=== PATIENT | female | born 1960 | race African-American/Black ===

== ENCOUNTER 2021-11-27 20:28 | Emergency (ER) | payer BC, SELFPAY ==
[2021-11-27 20:34] VITALS: BP 172/83; PULSE 83; RESP 16; TEMP 36.6; O2SAT 98
[2021-11-28 00:10] VITALS: PULSE 69; RESP 10; O2SAT 99
[2021-11-28 00:11] VITALS: BP 159/95; PULSE 67; RESP 14; O2SAT 100
--- NOTE | 2021-11-28 00:13 | PC.NURSE ---
Pt reports she is out of medication and has upcoming appointment to establish care with a new PCP. Reports has been monitoring BP at home and it has been elevated. Pt reports she took her daughter's BP med [employer] because she takes the same BP med. Pt also has c/o left side abd pain off and on for 2 weeks
[2021-11-28 00:16] VITALS: PULSE 75; O2SAT 98
[2021-11-28 00:30] VITALS: PULSE 64; RESP 16; O2SAT 100
[2021-11-28 00:32] VITALS: BP 152/96; PULSE 64; RESP 16; O2SAT 100
--- NOTE | 2021-11-28 00:55 | ED.GENADULT ---
HPI - General Adult General Chief complaint: Recheck/Abnormal Lab/Rx Stated complaint: hypertension Time Seen by Provider: 11/28/21 00:14 History of Present Illness HPI narrative: This is a 61-year-old female presenting to ED after an elevated blood pressure reading at home. Patient just moved back to town is working on establishing primary care. She ran out of her amlodipine and hydrochlorothiazide about 5 days ago. Her blood pressure at home was 150/100. Patient is concerned because she had some blurry vision which she thinks is due to her BP. Patient was recently he got a new set of glasses. She has not been wearing them. Had a prolapse is on her vision is back to normal. Patient has appointment with her new primary care physician on December 21. Related Data Allergies Allergy/AdvReac Type Severity Reaction Status Date / Time No Known Allergies Allergy Unverified 01/25/16 19:19 Review of Systems Review of Systems: CONSTITUTIONAL: Denies night sweats. EYES: No eye pain ENT: Denies rhinorrhea CARDIOVASCULAR: Denies palpitations RESPIRATORY: Denies hemoptysis GASTROINTESTINAL: Denies hematemesis GENITOURINARY: Denies hematuria. SKIN: Denies rash MUSCULOSKELETAL: Denies myalgia. NEUROLOGIC: Denies weakness. PSYCHIATRIC: Denies delusions PMFSH Past Medical History Medical History Hypertension Surgical History Surgical History H/O: hysterectomy History of cholecystectomy Social History Social History Social History: Patient's alcohol occasionally, history of tobacco use, denies drug use. Exam Narrative: APPEARANCE: No apparent distress. Head atraumatic. EYES: PERRLA/EOMI, NOSE: Normal no drainage NECK: Supple, Trachea midline RESPIRATORY: CTAB, No increased work of breathing. CARDIOVASCULAR: S1S2 appreciated ABDOMINAL: Soft, nontender, nondistended, MUSCULOSKELETAl: No obvious deformities NEURO: Alert. Cranial nerves 2-12 grossly intact. Sensation light touch, motor function cerebellar function intact for 4 extremities. Gait exam was normal. SKIN:: Warm, dry. Normal color PSYCHIATRIC: Normal affect Course Vital Signs Vital signs: Vital Signs Temperature 97.9 F 11/27/21 20:34 Pulse Rate 83 11/27/21 20:34 Respiratory Rate 16 11/27/21 20:34 Blood Pressure 172/83 H 11/27/21 20:34 Pulse Oximetry 98 11/27/21 20:34 Oxygen Delivery Room Air 11/27/21 20:34 Temperature 97.9 F 11/27/21 20:34 Pulse Rate 67 11/28/21 00:11 Respiratory Rate 14 11/28/21 00:11 Blood Pressure 159/95 H 11/28/21 00:11 Pulse Oximetry 100 11/28/21 00:11 Oxygen Delivery Room Air 11/27/21 20:34 Medical Decision Making MDM Narrative Medical decision making narrative: patient present ED with chief complaint of elevated blood pressure. She thought that she also had blurry vision but that resolved when she put her glasses on. She has no other symptoms. Patient will be given prescriptions for her amlodipine and hydrochlorothiazide which she ran out several days ago. This should last until she follows with her primary care physician on December 21. Vital Signs Vital Signs: Vital Signs Temperature 97.9 F 11/27/21 20:34 Pulse Rate 83 11/27/21 20:34 Respiratory Rate 16 11/27/21 20:34 Blood Pressure 172/83 H 11/27/21 20:34 Pulse Oximetry 98 11/27/21 20:34 Oxygen Delivery Room Air 11/27/21 20:34 Temperature 97.9 F 11/27/21 20:34 Pulse Rate 67 11/28/21 00:11 Respiratory Rate 14 11/28/21 00:11 Blood Pressure 159/95 H 11/28/21 00:11 Pulse Oximetry 100 11/28/21 00:11 Oxygen Delivery Room Air 11/27/21 20:34 Discharge Plan Discharge Clinical Impression: Encounter for medication refill Patient Disposition: Home, Self-Care Condition: Stable Instructions: Antibiot
[2021-11-28 01:14] VITALS: TEMP 36.8
== END 2021-11-28 01:16 | disposition home or self-care (01) ==
PROVIDERS: Emergency Provider Emergency Medicine
DX: I10 Essential (primary) hypertension (principal); T46.1X6A Underdosing of calcium-channel blockers, initial encounter; T50.2X6A Underdosing of carbonic-anhydrase inhibitors, benzothiadiazides and other diuretics, initial encounter; Z91.128 Patient's intentional underdosing of medication regimen for other reason; Z90.710 Acquired absence of both cervix and uterus
CPT/HCPCS: 99281

== ENCOUNTER 2022-05-24 11:41 | Outpatient (CLI) | payer OTHER, SELFPAY ==
--- NOTE | ~2022-05-24 | MMUS_ITS ---
EXAMINATION: MM diagnostic paula BI [address] rd, US breast BI limited HISTORY: Bilateral axillary lymphadenopathy TECHNIQUE: Craniocaudal, mediolateral, and mediolateral oblique 3-D tomosynthesis images of the bresom ts were performed and synthetic 2-D images were generated. CAD analysis was submitted and interpreted . High resolution bilateral axillary and limited right breast ultrasound was performed. COMPARISON: 04/04/2014, 01/15/2014, 12/21/2005, 12/01/2005 BREAST PARENCHYMAL COMPOSITION: The breasts are almost entirely fatty. FINDINGS: MAMMOGRAPHIC FINDINGS: Right breast: There is a 5 mm circumscribed round mass in the middle third of the lower breast at the 6:00 location 9 cm from the nipple. No suspicious calcification or architectural distortion are iden tified. There is no mammographic correlate for the patient's reported right axillary lymphadenopathy. Left breast: No suspicious mass, calcification, or architectural distortion are identified suggest ma lignancy. There has been no suspicious interval change. No mammographic correlate is identified for t he patient's reported left axillary lymphadenopathy. ULTRASOUND: There is a 5 mm cyst of the right breast corresponding to the mammographic finding in question. Theresa l morphology axillary lymph nodes are present bilaterally. No suspicious axillary lymphadenopathy is identified. IMPRESSION: 1. No specific mammographic or sonographic correlate is identified for the patient's reported axillar y lymphadenopathy. Further evaluation at this time should be based on clinical assessment. Continued follow-up physical examination is recommended. 2. Recommend routine screening mammography in one year. BI-RADS Category 2: Benign finding(s). Reviewed, dictated and finalized at location A. IMPRESSION: 1. No specific mammographic or sonographic correlate is identified for the machelle ent's reported axillary lymphadenopathy. Further evaluation at this time should be based on clinical assessment. Continued follow-up physical examination is r ecommended. 2. Recommend routine screening mammography in one year. BI-RADS Category 2: Benign finding(s).
== END 2022-05-24 11:42 | disposition home or self-care (01) ==
PROVIDERS: Visit Provider Nurse Practitioner
DX: R59.0 Localized enlarged lymph nodes (principal)
CPT/HCPCS: 76642; 77062; 77066; G0279